=== PATIENT | male | born 1985 | race Caucasian/White ===

== ENCOUNTER 2019-01-28 20:31 | Emergency (ER) | payer OTHER ==
[~2019-01-28] VITALS: Ht 175.3 cm; Wt 77.1 kg
[~2019-01-28 20:31] MED LIST: DICY10CA40 PO; HYDR-3498 PO; HYDR-762 PO; IBUP-1542 PO; METO10TA92 PO; NAPR-985 PO; ONDA4TAB35 PO; ORPH100T PO; PANT40TA3 PO
[2019-01-28 20:41] VITALS: Ht 175.3 cm; Wt 77.1 kg
--- NOTE | 2019-01-28 21:52 | ERD ---
ER Documentation Chief Complaint Chief Complaint R ANKLE PAIN X'S 2 WEEKS HPI 33-year-old male presenting to the emergency department complaining of worsening right ankle pain after injury 2 weeks ago. His current pain is intermittent 7/10 in severity. He took [id number] medication at home with some relief. He states the original injury was 2 weeks ago when he was walking upstairs and inverted his right ankle. He did have an x-ray at [facility] at that time which was reportedly negative but presents today for worsening pain. No other symptoms reported currently. ROS All systems reviewed and are negative except as per history of present illness. Medications Home Meds Active Scripts Ibuprofen* (Motrin*) 600 Mg Tab, 600 MG PO Q6, #30 TAB Prov:OLAYINKA VANG PA-C 01/28/19 Ondansetron Hcl* (Zofran* ODT) 4 mg -ODT Tab.disper, 4 MG PO Q6 PRN for NAUSEA AND/OR VOMITING, #20 TAB Prov:THERESA JJ MD 08/08/15 Hydrocodone Bit-Acetaminophen* (Lithonia*) 10-325 Mg Tablet, 1 TAB PO Q6 PRN for PAIN, #12 TAB Prov:THERESA JJ MD 08/08/15 Ondansetron Hcl* (Zofran* ODT) 4 mg -ODT Tab.disper, 4 MG PO Q4H PRN for NAUSEA AND OR VOMITING, #10 TAB Prov:ARETHA GONOGRA DO 07/31/15 Naproxen* (Naprosyn*) 500 Mg Tablet, 500 MG PO BID, #14 TAB Prov:ARETHA GONGORA DO 07/31/15 Hydrocodone Bit-Acetaminophen* (Lithonia*) 5-325 Mg Tab, 1 TAB PO Q4H PRN for SEVERE PAIN LEVEL 7-10, #10 TAB Prov:ARETHA GONGORA DO 07/31/15 Metoclopramide* (Reglan*) 10 Mg Tablet, 10 MG PO Q6H PRN for NAUSEA AND OR VOMITING, #30 TAB Prov:DALTON VASQUEZ MD 07/29/15 Pantoprazole* (Protonix*) 40 Mg Tablet.dr, 40 MG PO DAILY, #30 TAB Prov:DALTON VASQUEZ MD 07/29/15 Dicyclomine HCl (Dicyclomine HCl) 10 Mg Capsule, 10 MG PO QID for abdominal cramping, #30 CAP Prov:ORAL BARRIENTOS NP 07/20/15 Ibuprofen* (Motrin*) 600 Mg Tab, 600 MG PO Q8, #14 TAB Prov:AINTA BREWER 07/06/15 Orphenadrine Citrate (Norflex) 100 Mg Tablet.sa, 100 MG PO BID, #6 TAB.SA Prov:ANITA BREWER 07/06/15 Allergies Allergies: Coded Allergies: No Known Drug Allergies (Verified Allergy, Unknown, 08/08/15) PMhx/Soc History of Surgery: Yes (ERCP 07/24/15) Anesthesia Reaction: No Hx Neurological Disorder: No Hx Respiratory Disorders: No Hx Cardiac Disorders: No Hx Psychiatric Problems: No Hx Miscellaneous Medical Probl: Yes (Epigastric pain, 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 Neck: Full range of motion. No meningismus. Resp: No respiratory distress. Skin: No petechiae or rashes Ext: subjective tenderness palpation of the right lateral malleolus. No significant soft tissue swelling. No tenderness of the medial malleolus. Patient is neurovascularly intact to the right ankle and right foot. There is no obvious deformity or open fractures noted. 2+ DP pulses to the right foot. Neur: Awake and alert Psych: Normal Mood and Affect Results 24 hrs [place] [id number] Radiology Main Line: [phone] DIAGNOSTIC IMAGING REPORT Patient: GHULAM VALDEZ : 1985 Age: 33 Sex: M MR #: [id number] DOS: 01/28/19 0000 Ordering MD: OLAYINKA VANG PA-C Location: [facility] Room/Bed: PROCEDURE: XR Ankle. CLINICAL INDICATION: Pain TECHNIQUE: AP, oblique and lateral views of the right ankle were performed. COMPARISON: None. FINDINGS: There is normal mineralization and alignment. No acute fracture or osseous lesion is identified. The joints are normal. The soft tissues are unremarkable. There are small plantar and posterior calcaneal spurs. RPTAT: AA IMPRESSION: Small plantar and posterior calcaneal spurs. .Clif Cardenas MD, MD Date Time Electronically viewed and signed by .Clif Cardenas MD, MD on 01/28/2019 22:28 .S/ CC: OLAYINKA VANG PA-C [id number] Procedures/MDM 33-year-old male presenting with signs and symptoms most consistent with right ankle sprain. X-ray was negative for sign of fracture. Full report interpreted by the radiologist may be viewed above. Patient's extremity symptoms have stabilized while they have been evaluated in the department and are appropriate for outpatient follow up. No evidence of compartment syndrome, neurologic injury, vascular injury, open joint, open fracture, tendon laceration, or foreign body. No evidence of life-threatening pathology at time of discharge. Pt/family in agreement with discharge plan/diagnosis. Pt/family advised to return immediately with any new or worsening symptoms. Follow-up with primary care physician within the next 1-2 days. Patient's blood pressure was elevated (>120/80) but appears stable without evidence of hypertension emergency or urgency. The patient is to follow-up and pursue outpatient monitoring and therapy with their primary care physician within 1 week and return immediately if they have any new, worsening, or concerning symptoms. Disclaimer: Inadvertent spelling and grammatical errors are likely due to EHR/dictation software use and do not reflect on the overall quality of patient care. Also, please note that the electronic time recorded on this note does not necessarily reflect the actual time of the patient encounter. Departure Diagnosis: Primary Impression: Ankle injury Encounter type: initial encounter Laterality: right Qualified Codes: S99.911A - Unspecified injury of right ankle, initial encounter Condition: Fair Patient Instructions: Treating Ankle Sprains Additional Instructions: Follow up with your PCP within the next 1-3 days for a repeat evaluation. If you require a referral to a specialist, your Primary Care Provider may be able to provide this for you. In most patient cases, a referral is not required. If you have further questions regarding this matter, please ask your Primary Care Provider. Return the the emergency department immediately if symptoms worsen or change. If you have any questions regarding medications, ask your pharmacist or us before you leave. If any adverse reactions, occur while taking your medications, discontinue the treatment and return to the emergency department immediately. If any new or worsening symptoms, uncontrolled fevers, or other unexplained symptoms occur, return to the emergency department immediately. Take your medications as directed, and complete the entire course of treatment. OLAYINKA VANG PA-C Jan 28, 2019 21:52
[2019-01-28] MEDS ORDERED: IBUP-1542 PO (22:32)
[2019-01-28 23:05] VITALS: BP 138/68; PULSE 82; RESP 20
== END 2019-01-28 23:05 | disposition home or self-care (01) ==
LOC: FTE 20:31
DX: S99.911A Unspecified injury of right ankle, initial encounter (principal); F17.210 Nicotine dependence, cigarettes, uncomplicated; X58.XXXA Exposure to other specified factors, initial encounter; Y92.9 Unspecified place or not applicable
CPT/HCPCS: 73610; Z7502